=== PATIENT | female | born 1985 | race American Indian/Alaskan Native ===

== ENCOUNTER 2016-08-11 06:18 | Emergency (ER) | payer OTHER ==
[2016-08-11 06:33] VITALS: BMI 40.3
[2016-08-11 06:34] VITALS: TEMP 98.4
[2016-08-11 06:42] VITALS: RESP 16
[2016-08-11] MEDS ORDERED: Lidocaine 1% Inj (20ml) IJ STA (07:12)
[2016-08-11] MEDS ORDERED: Oxycodone/Acetaminophen 5/325 mg Tab PO STA (07:12)
--- NOTE | 2016-08-11 07:16 | ED PDOC ---
Arrival/HPI - General Chief Complaint: Groin Pain Time Seen by Provider: 08/11/16 07:05 Historian: Patient - History of Present Illness Narrative History of Present Illness (Text): 08/11/16 07:12 31 year old female who denies any past medical history presents to the emergency department with painful abscess in left perineal area that has been worsening over last 2 days. She states she gets boils in the suprapubic area frequently during her menstrual period but says they normally pop and go away. Denies fever, chills, nausea, vomiting, or other complaints. Time/Duration: < week Symptom Onset: Gradual Symptom Course: Worsening Modifying Factors (Text): None Associated Symptoms (Text): None Past Medical History - Provider Review Nursing Documentation Reviewed: Yes - Psychiatric Hx Substance Use: No - Surgical History Hx Tonsillectomy: Yes Family/Social History - Physician Review Nursing Documentation Reviewed: Yes Family/Social History: Unknown Family HX Smoking Status: Never Smoked Hx Alcohol Use: Yes Hx Substance Use: No Allergies/Home Meds Allergies/Adverse Reactions: Allergies No Known Allergies Allergy (Verified 12/24/15 19:57) Review of Systems - Review of Systems Constitutional: absent: Fevers Respiratory: absent: SOB Gastrointestinal: absent: Nausea, Vomiting Genitourinary Female: absent: Dysuria, Frequency, Hematuria Skin: Abscess (left groin) Neurological: absent: Headache Physical Exam Vital Signs Reviewed: Yes Vital Signs Temp Pulse Resp BP Pulse Ox 08/11/16 08:57 76 16 122/76 97 08/11/16 06:33 98.4 F 86 17 110/62 97 Temperature: Afebrile Blood Pressure: Normal Pulse: Regular Respiratory Rate: Normal Appearance: Positive for: Well-Appearing, Non-Toxic Mental Status: Positive for: Alert and Oriented X 3 - Systems Exam Conjunctiva: Present: Normal Mouth: Present: Moist Mucous Membranes Genitourinary/Pelvic Exam: Present: Other (Approximately 5 cm area of induration on left perineal fat. No swelling or induration of labia. No swelling , induration, or tenderness by anus. Travel Physical Therapist: NAYANA Parker) Lower Extremity: Present: Normal Inspection. No: Edema Neurological: Present: GCS=15, Speech Normal Psychiatric: Present: Alert, Oriented x 3, Normal Insight, Normal Concentration Medical Decision Making ED Course and Treatment: Procedure: Incision & Drainage Performed by the emergency provider Indication: Abscess Location: Left perineal fat Preparation: The area was prepped and draped in the usual sterile fashion and was cleansed. Local infiltration of Lidocaine 1% and Nitrous Oxide was used for anxiolysis. Procedure: The most fluctuant portion of the abscess was incised with a #11 scalpel. Copious amount of purulent drainage was obtained. A dressing was applied. Post-Procedure: On exam the abscess is notably less fluctuant. The patient tolerated the procedure well, and there were no immediate complications. - Medication Orders Current Medication Orders: Discontinued Medications Lidocaine HCl (Lidocaine 1% (20ml)) 20 ml IJ STAT STA Stop: 08/11/16 07:13 Last Admin: 08/11/16 07:45 Dose: 1 applic Comments: given by Dr Jama Ondansetron HCl (Zofran Odt) 4 mg PO STAT STA Stop: 08/11/16 07:29 Last Admin: 08/11/16 07:42 Dose: 4 mg Oxycodone/Acetaminophen (Percocet 5/325 Mg Tab) 1 tab PO STAT STA Stop: 08/11/16 07:13 Last Admin: 08/11/16 07:42 Dose: 1 tab Trimethoprim/Sulfamethoxazole (Bactrim Ds Tab) 2 tab PO STAT STA PRN Reason: Protocol Stop: 08/11/16 08:08 Last Admin: 08/11/16 08:40 Dose: 2 tab - Scribe Statement The provider has reviewed the documentation as recorded by the Pamela José Provider Scribe Attestation: All medical record entries made by the Pamela were at my direction and personally dictated by me. I have reviewed the chart and agree that the record accurately reflects my personal performance of the history, physical exam, medical decision making, and the department course for this patient. I have also personally directed, reviewed, and agree with the discharge instructions and disposition. Disposition/Present on Arrival - Present on Arrival Any Indicators Present on Arrival: No History of DVT/PE: No History of Uncontrolled Diabetes: No Urinary Catheter: No History of Decub. Ulcer: No History Surgical Site Infection Following: None - Disposition Have Diagnosis and Disposition been Completed?: Yes Diagnosis: Abscess Disposition: HOME/ ROUTINE Disposition Time: 08:43 Condition: IMPROVED Discharge Instructions (ExitCare): Abscess Incision and Drainage (ED) Additional Instructions: Please follow up with your primary doctor. You will continue to have some drainage from the wound for a couple days. Clean the area with soap and water and change bandage at least once a day. Return to the ER for any worsening pain/ swelling, green/yellow drainage, fever or for any other concerns. Prescriptions: Sulfamethoxazole/Trimethoprim [Bactrim DS 800 mg-160 mg] 2 tab PO BID #28 tab Referrals: José Morales, [Primary Care Provider] - Follow up with primary Forms: WORK NOTE
[2016-08-11] MEDS ORDERED: Tmp-Smz 800 mg-160 mg DS Tab PO STA (08:07)
[2016-08-11 08:58] VITALS: BP 122/76; PULSE 76; O2SAT 97
== END 2016-08-11 09:00 | disposition home or self-care (01) ==
LOC: ED 06:18
DX: L02.214 Cutaneous abscess of groin (principal)

== ENCOUNTER 2018-05-09 09:29 | Emergency (ER) | payer OTHER ==
[2018-05-09 09:45] VITALS: RESP 18; TEMP 98.2; BMI 27.6
[2018-05-09] MEDS ORDERED: Albuterol-Ipratrop 3 mg / 0.5 (3 ml) UD IH STA (10:05)
--- NOTE | 2018-05-09 10:10 | ED PDOC ---
Arrival/HPI - General Chief Complaint: Cough, Cold, Congestion Historian: Patient - History of Present Illness Narrative History of Present Illness (Text): 05/09/18 10:07 33 y/o female, no significant pmh, nkda, c/o nasal congestion/coughing/chest congestion x 4 days with no recent traveling. Nasal congestion, associated with chest congestion, productive coughing, no night sweat, no fever or chills, no numbness or tingling, no rash, no dizziness, no other medical or psychological complaints. Past Medical History - Provider Review Nursing Documentation Reviewed: Yes - Cardiac Hx Cardiac Disorders: No - Pulmonary Hx Respiratory Disorders: No - Neurological Hx Neurological Disorder: Yes Hx Migraine: Yes - HEENT Hx HEENT Disorder: Yes Other/Comment: HX: TONSILLECTOMY - Renal Hx Renal Disorder: No - Endocrine/Metabolic Hx Endocrine Disorders: No - Hematological/Oncological Hx Blood Disorders: No - Integumentary Hx Dermatological Disorder: No - Musculoskeletal/Rheumatological Hx Musculoskeletal Disorders: Yes Other/Comment: HX: PLANTAR FASCITIS(LEFT FOOT) - Gastrointestinal Hx Gastrointestinal Disorders: No - Genitourinary/Gynecological Hx Genitourinary Disorders: No - Psychiatric Hx Psychophysiologic Disorder: No Hx Substance Use: No - Surgical History Hx Tonsillectomy: Yes - Anesthesia Hx Anesthesia: Yes Hx Anesthesia Reactions: No Hx Malignant Hyperthermia: No Family/Social History - Physician Review Nursing Documentation Reviewed: Yes Family/Social History: Unknown Family HX Smoking Status: Never Smoked Hx Alcohol Use: Yes Hx Substance Use: No Allergies/Home Meds Allergies/Adverse Reactions: Allergies No Known Allergies Allergy (Verified 05/09/18 09:57) Review of Systems - Review of Systems Constitutional: absent: Fatigue, Fevers Eyes: absent: Vision Changes ENT: Rhinorrhea. absent: Hearing Changes Respiratory: Cough, Sputum. absent: SOB, Wheezing Cardiovascular: absent: Chest Pain Gastrointestinal: absent: Abdominal Pain, Stool Changes, Constipation, Diarrhea, Nausea, Vomiting, Appetite Changes, Hematochezia, Hematemesis, Anorexia, Food Intolerance Musculoskeletal: absent: Arthralgias, Back Pain Skin: absent: Rash, Pruritis Neurological: absent: Headache, Dizziness Psychiatric: absent: Anxiety, Depression, Suicidal Ideation Physical Exam Vital Signs Reviewed: Yes Vital Signs Temp Pulse Resp BP Pulse Ox 05/09/18 09:44 98.2 F 92 H 18 116/66 98 Temperature: Afebrile Blood Pressure: Normal Pulse: Regular Respiratory Rate: Normal Appearance: Positive for: Well-Appearing, Non-Toxic, Comfortable Pain Distress: None Mental Status: Positive for: Alert and Oriented X 3 - Systems Exam Head: Present: Atraumatic, Normocephalic Pupils: Present: PERRL Extroacular Muscles: Present: EOMI Conjunctiva: Present: Normal Mouth: Present: Moist Mucous Membranes Neck: Present: Normal Range of Motion Respiratory/Chest: Present: Wheezes, Decreased Breath Sounds, Rhonchi. No: Respiratory Distress, Accessory Muscle Use, Rales, Retracting, Tachypneic, Tender to Palpation Cardiovascular: Present: Regular Rate and Rhythm, Normal S1, S2. No: Murmurs Abdomen: No: Tenderness, Distention, Peritoneal Signs Back: Present: Normal Inspection. No: CVA Tenderness Upper Extremity: Present: Normal Inspection. No: Cyanosis, Edema Lower Extremity: Present: Normal Inspection, NORMAL PULSES, Normal ROM, Deformity, Neurovascularly Intact, Capillary Refill < 2 s. No: Edema Neurological: Present: GCS=15, CN II-XII Intact, Speech Normal, Motor Func Grossly Intact, Normal Cerebellar Funct, Gait Normal, Memory Normal Skin: Present: Warm, Dry, Normal Color. No: Rashes Psychiatric: Present: Alert, Oriented x 3, Normal Insight, Normal Concentration Medical Decision Making ED Course and Treatment: 05/09/18 10:09 -duoneb/prednisone/azithromycin -cxr -observe and reassess 05/09/18 10:34 -Urine hcg is negative -Rapid flu is negative -Chest xray No active disease. -After duonebs/prednisone, lung is clear to auscultate with no wheezing. -Pt. feels well, much better, vitally stable, will discharge home. -Discharge home with zithromax/prednisone/albuterol, bed rest, follow up with your own pmd within 2 days, return to the ER for any new or worsening signs or symptoms. - RAD Interpretation Radiology Orders: Date of service: 05/09/2018 HISTORY: medical clearance COMPARISON: No prior. FINDINGS: LUNGS: No active pulmonary disease. PLEURA: No significant pleural effusion identified, no pneumothorax apparent. CARDIOVASCULAR: No aortic atherosclerotic calcification present. Normal cardiac size. No pulmonary vascular congestion. OSSEOUS STRUCTURES: No significant abnormalities. VISUALIZED UPPER ABDOMEN: Normal. OTHER FINDINGS: None. IMPRESSION: No active disease. 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 Disposition/Present on Arrival - Present on Arrival Any Indicators Present on Arrival: No History of DVT/PE: No History of Uncontrolled Diabetes: No Urinary Catheter: No History of Decub. Ulcer: No History Surgical Site Infection Following: None - Disposition Have Diagnosis and Disposition been Completed?: Yes Diagnosis: Bronchitis Disposition: HOME/ ROUTINE Disposition Time: 10:36 Patient Plan: Discharge Condition: IMPROVED Discharge Instructions (ExitCare): Acute Bronchitis Additional Instructions: -Discharge home with zithromax/prednisone/albuterol, bed rest, follow up with your own pmd within 2 days, return to the ER for any new or worsening signs or symptoms. Prescriptions: Albuterol HFA [Ventolin HFA 90 mcg/actuation (8 g)] 2 puff IH [id number] PRN #1 in PRN Reason: Other Azithromycin [Zithromax] 250 mg PO DAILY #4 tab Loratadine/Pseudoephedrine [Claritin-D 24 Hour Tablet] 1 each PO DAILY #7 tab.er.24h Prednisone 50 mg PO DAILY #4 tab Referrals: Chuy Langley MD [Primary Care Provider] - Follow up with primary Forms: [employer] (Icelandic), WORK NOTE
--- NOTE | 2018-05-09 10:34 | RAD ---
Date of service: 05/09/2018 HISTORY: medical clearance COMPARISON: No prior. FINDINGS: LUNGS: No active pulmonary disease. PLEURA: No significant pleural effusion identified, no pneumothorax apparent. CARDIOVASCULAR: No aortic atherosclerotic calcification present. Normal cardiac size. No pulmonary vascular congestion. OSSEOUS STRUCTURES: No significant abnormalities. VISUALIZED UPPER ABDOMEN: Normal. OTHER FINDINGS: None. IMPRESSION: No active disease.
[2018-05-09 11:18] VITALS: BP 120/72; PULSE 89; O2SAT 99
== END 2018-05-09 11:17 | disposition home or self-care (01) ==
LOC: ED 09:29
DX: J40 Bronchitis, not specified as acute or chronic (principal)